=== PATIENT | male | born 1970 | race Caucasian/White ===

== ENCOUNTER 2018-11-02 07:52 | Emergency (ER) | payer BC ==
[~2018-11-02] VITALS: Ht 180.3 cm; Wt 93.0 kg
[~2018-11-02 07:52] MED LIST: FIBER0.52 G1; FLEXERIL PO; IBUPROFEN200 M1; MULTIVITAMINS1 EAC7
[2018-11-02 09:22] LABS: HEMATOCRIT 45.2 % (42.0-52.0); HEMOGLOBIN 15.7 gm/dL (14.0-18.0); MCH 29.3 pg (26.0-34.0); MCHC 34.7 g/dL (28.0-37.0); MCV 84.5 fL (80.0-100.0); PLATELET COUNT 260 thou/uL (150-400); RBC 5.35 mil/uL (4.50-6.00); WBC 8.3 thou/uL (4.0-11.0)
[2018-11-02 09:29] LABS: ANION GAP 11 mmol/L (7-16); BUN 12 mg/dL (7-18); CALCIUM 9.4 mg/dL (8.5-10.1); CHLORIDE 96 mmol/L (98-107); CO2 24 mmol/L (21-32); CREATININE 1.3 mg/dL (0.7-1.3); GLUCOSE 113 mg/dL (74-106); POTASSIUM 3.4 mmol/L (3.5-5.1); SODIUM 131 mmol/L (136-145)
[2018-11-02] MEDS ORDERED: VALACYCLOVIR1000 MG PO ×2 (09:36→09:38)
[2018-11-02] MEDS ORDERED: PREDNISONE 20 M20 MG PO (09:36)
[2018-11-02] MEDS ORDERED: PREDNISONE 20 M20 M1 PO (09:38)
[2018-11-02 09:39] LABS: TROPONIN-I <0.06 ng/mL (<0.06)
[2018-11-02 09:47] LABS: ABSOLUTE NEUTROPHILS 5.6 thou/uL (1.4-8.2)
--- NOTE | 2018-11-02 10:46 | EKG ---
[facility] [place] [place] [address] ELECTROCARDIOGRAM REPORT Name: RODRIGUEZMAREN Room #: REG [facility]#: [id number] Admission: 11/02/18 Attend Phys: Discharge: Date of : 74 Report #: [id number] THIS REPORT FOR: //name// [facility] ED Test Date: 2018-11-02 Test Time: 08:00:55 Pat Name: MAREN RODRIGUEZ Department: Room: Gender: [employer] Technician: [facility] : 1970 Requested By: Natalia Perkins Order Number: [id number] MD: Nikolay Dupree Measurements Intervals [place] Rate: 78 P: 47 AR: 191 QRS: 35 QRSD: 92 T: 8 QT: 359 QTc: 409 Interpretive Statements Sinus rhythm No significant abnormality Baseline wander in lead(s) II,III,aVL,aVF,V2 No previous ECG available for comparison Electronically Signed On 11-02-2018 10:46:31 CDT by Nikolay Dupree [email or web address] <ELECTRONICALLY SIGNED> By: Nikolay Dupree MD, [facility] 11/02/18 1046 0800 9 Nikolay Dupree MD, FACC /EPI
[2018-11-02 11:05] VITALS: BP 123/83
== END 2018-11-02 11:35 | disposition home or self-care (01) ==
LOC: ER 07:52
PROVIDERS: Emergency Medicine
DX: B02.9 Zoster without complications (principal); R06.00 Dyspnea, unspecified; R51 Headache; F17.210 Nicotine dependence, cigarettes, uncomplicated